=== PATIENT | female | born 1990 | race Caucasian/White ===

== ENCOUNTER 2019-01-13 07:37 | Outpatient (CLI) | payer OTHER ==
--- NOTE | 2019-01-13 12:08 | NM ---
MYOCARDIAL PERFUSION STUDY: DATE: 01/13/19 HISTORY: Chest pain. RADIOPHARMACEUTICALS: 31 mCi technetium-99m sestamibi, IV at stress. 10.2 mCi technetium-99m sestamibi, IV at rest. This examination is performed as an exercise stress myocardial perfusion study following the routine Eliel protocol. Resting heart rate is 68 beats/minute with maximum heart rate of 171 beats/minute, wh ich represents 88th percentile for maximum age-predicted heart rate. FINDINGS: Normal uptake is seen within the left ventricular myocardium on the resting and stress acquisitions. No reversible defect is identified. Quantitative analysis also shows no significant reversible defect . Gated images show normal ventricular wall motion and wall thickening. The calculated left ventricular ejection fraction is 57%. IMPRESSION: 1. Normal myocardial perfusion study without evidence of a reversible defect seen to suggest ischemi a. 2. Normal LVEF of 57%. POS: ANTONY
== END 2019-01-13 07:38 | disposition home or self-care (01) ==
LOC: NM 07:37
PROVIDERS: ATTEND Family Medicine
DX: R07.89 Other chest pain (principal)
CPT/HCPCS: 78452; 93017; A9500

== ENCOUNTER 2021-02-10 19:44 | Emergency (ER) | payer OTHER | END 2021-02-10 21:15 | disposition home or self-care (01) | LOC: ERS 19:44 | DX: S83.91XA Sprain of unspecified site of right knee, initial encounter (principal); X50.1XXA Overexertion from prolonged static or awkward postures, initial encounter; Y99.0 Civilian activity done for income or pay ==

== ENCOUNTER 2022-05-29 12:20 | Outpatient (CLI) | payer BC | END 2022-05-29 12:21 | disposition home or self-care (01) | LOC: TBSIIMAG 12:20 | PROVIDERS: ATTEND Physician Assistant | DX: G44.52 New daily persistent headache (NDPH) (principal) | CPT/HCPCS: 70551 ==

== ENCOUNTER 2022-06-05 12:24 | Outpatient (CLI) | payer BC | END 2022-06-05 12:25 | disposition home or self-care (01) | LOC: BICULT 12:24 | PROVIDERS: ATTEND Physician Assistant | DX: E05.90 Thyrotoxicosis, unspecified without thyrotoxic crisis or storm (principal) | CPT/HCPCS: 76536 ==

== ENCOUNTER 2023-01-09 13:03 | Outpatient (CLI) | payer BC | END 2023-01-09 13:04 | disposition home or self-care (01) | LOC: DTY/OP 13:03 | PROVIDERS: ATTEND Surgery | DX: E66.01 Morbid (severe) obesity due to excess calories (principal) | CPT/HCPCS: 97802 ==